=== PATIENT | female | born 1995 | race Caucasian/White ===

== ENCOUNTER 2018-05-17 19:12 | Emergency (ER) | payer OTHER ==
[~2018-05-17] VITALS: Ht 157.5 cm; Wt 49.9 kg
[~2018-05-17 19:12] MED LIST: ACETAMINOPHEN-1 EAC1 PO; FLEXERIL PO; IBUPROFEN 600600 M1 PO; IBUPROFEN 800800 M1 PO; MEDROLDOSEPACK PO; NAPROSYN500 MG PO; PRENATAL; ZOFRAN4 MG PO
[2018-05-17] MEDS ORDERED: ZPAK PO (20:40)
[2018-05-17] MEDS ORDERED: ONDANSETRON HCL4 M2 PO (20:40)
[2018-05-17] MEDS ORDERED: VENTOLIN HFA 1818 GM INH (20:40)
[2018-05-17] MEDS ORDERED: MEDROLDOSEPACK PO (20:40)
[2018-05-17] MEDS ORDERED: TESSALON PERLE100 MG PO (20:40)
[2018-05-17 21:04] VITALS: BP 144/81
== END 2018-05-17 21:07 | disposition home or self-care (01) ==
LOC: M.ERS 19:12
DX: J20.9 Acute bronchitis, unspecified (principal); M94.0 Chondrocostal junction syndrome [Tietze]

== ENCOUNTER 2021-03-01 15:56 | Emergency (ER) | payer OTHER ==
[~2021-03-01] VITALS: Ht 157.5 cm; Wt 49.9 kg
[~2021-03-01 15:56] MED LIST changes: +ONDANSETRON HCL4 M2 PO; +TESSALON PERLE100 MG PO; +VENTOLIN HFA 1818 GM INH; +ZPAK PO
[2021-03-01] MEDS ORDERED: MOBIC7.5 MG PO (17:05)
[2021-03-01 17:20] VITALS: BP 159/86
== END 2021-03-01 17:21 | disposition home or self-care (01) ==
LOC: M.ERS 15:56
DX: M25.531 Pain in right wrist (principal); G43.909 Migraine, unspecified, not intractable, without status migrainosus; Z91.040 Latex allergy status

== ENCOUNTER 2021-08-10 23:16 | Emergency (ER) | payer OTHER ==
[~2021-08-10] VITALS: Ht 157.5 cm; Wt 47.6 kg
[~2021-08-10 23:16] MED LIST changes: +MOBIC7.5 MG PO
[2021-08-11 00:15] LABS: INFLUENZA A ANTIGEN Negative (Negative); INFLUENZA B ANTIGEN Negative (Negative)
[2021-08-11] MEDS ORDERED: IBUPROFEN 800800 MG PO (01:10)
[2021-08-11] MEDS ORDERED: AUGMENTIN 500-1 EACH PO (01:10)
[2021-08-11] MEDS ORDERED: ACETAMINOPHEN-1 EAC2 PO (01:10)
[2021-08-11 01:21] VITALS: BP 133/90
--- NOTE | 2021-08-11 12:24 | EKG ---
[place] [address] ELECTROCARDIOGRAM REPORT Name: APRRISH ASCENCIOKIKI Shruti Room: [facility]#: [id number] Admission: 08/10/21 Attend Phys: Discharge: 08/11/21 Date of : 89 Date of Service: 08/10/21 2331 Report #: [id number] THIS REPORT FOR: //name// [facility] ED Test Date: 2021-08-10 Test Time: 23:31:11 Pat Name: ANDREI ASCENCIO Department: Room: Gender: Spiral Winder: MARISA : 1995 Requested By: Asiya Lee Order Number: [id number] MD: Phuc Correia Measurements Intervals [place] Rate: 111 P: 57 MN: 147 QRS: 50 QRSD: 97 T: -22 QT: 299 QTc: 407 Interpretive Statements Sinus tachycardia RSR' in V1 or V2, right VCD or RVH Borderline T abnormalities, inferior leads No previous ECG available for comparison Electronically Signed On 08-11-2021 12:24:29 SBA UNDERWRITER by Phuc Correia [email or web address] <ELECTRONICALLY SIGNED> By: Phuc Correia MD, FACC 08/11/21 1224 2331 2331 Phuc Correia MD, FAC /EPI
== END 2021-08-11 01:21 | disposition home or self-care (01) ==
LOC: M.ERS 23:16
PROVIDERS: Personal Emergency Response Attendant
DX: H66.93 Otitis media, unspecified, bilateral (principal); Z20.822 Contact with and (suspected) exposure to COVID-19; M94.0 Chondrocostal junction syndrome [Tietze]; J02.9 Acute pharyngitis, unspecified; G43.909 Migraine, unspecified, not intractable, without status migrainosus; F41.9 Anxiety disorder, unspecified; Z91.040 Latex allergy status